=== PATIENT | female | born 1990 | race Caucasian/White ===

== ENCOUNTER 2020-04-02 10:44 | Emergency (ER) | payer OTHER ==
[~2020-04-02] VITALS: Ht 162.6 cm; Wt 104.3 kg
[2020-04-02 11:44] LABS: ABSOLUTE LYMPHOCYTES 0.9 thou/uL (0.8-5.3); ABSOLUTE MONOCYTES 0.2 thou/uL (0.0-1.2); ABSOLUTE NEUTROPHILS 4.5 thou/uL (1.6-8.1); BASOPHILS 0.1 %; EOSINOPHILS 0.3 %; HEMATOCRIT 41.5 % (37.0-47.0); HEMOGLOBIN 14.1 gm/dL (12.0-15.0); LYMPHOCYTES 15.3 %; MCH 30.9 pg (26.0-34.0); MCV 90.8 fL (80.0-100.0); MONOCYTES 4.2 %; NUCLEATED RBCS 0 /100WBC; PLATELET COUNT* 203 thou/uL (150-400); POLYS 80.1 %; RBC 4.57 mil/uL (4.20-5.00); RDW-CV 13.1 % (10.5-14.5); WBC 5.6 thou/uL (4.0-11.0)
[2020-04-02 11:51] LABS: URINE BLOOD NEGATIVE (Negative); URINE CLARITY CLEAR; URINE COLOR YELLOW; URINE GLUCOSE-RANDOM NEGATIVE (Negative); URINE KETONES 2+ (Negative); URINE LEUKOCYTES-REFLEX NEGATIVE (Negative); URINE NITRITE-REFLEX NEGATIVE (Negative); URINE PROTEIN NEGATIVE (Negative); URINE UROBILINOGEN 0.2 E.U./dl (0.2-1.0)
[2020-04-02 11:51] LABS: CALCIUM 8.3 mg/dL (8.5-10.1); CREATININE 0.9 mg/dL (0.6-1.3); POTASSIUM 3.7 mmol/L (3.5-5.1)
[2020-04-02 11:55] LABS: URINE BILIRUBIN 1+ (Negative)
[2020-04-02 11:55] LABS: ALBUMIN 3.6 g/dL (3.4-5.0); APTT 28.2 Seconds (25.0-31.3); INR 1.1; PROTIME 11.4 Seconds (9.20-11.50); TOTAL BILIRUBIN 1.2 mg/dL (<0.1-1.0); TOTAL PROTEIN 7.3 g/dL (6.4-8.2)
[2020-04-02 11:57] LABS: ICTOTEST (BILI CONFIRMATORY) Positive (Negative)
[2020-04-02] MEDS ORDERED: ZOFRAN ODT4 MG SUBLING (13:07)
[2020-04-02] MEDS ORDERED: NORCO 5-325 TA1 EAC1 PO (13:07)
[2020-04-02 13:19] VITALS: BP 96/72
--- NOTE | 2020-04-03 09:44 | EKG ---
[place] [address] ELECTROCARDIOGRAM REPORT Name: VANESSA EPPERSON Room: [facility]#: [id number] Admission: 04/02/20 Attend Phys: Discharge: 04/02/20 Date of : 88 Date of Service: 04/02/20 1105 Report #: [id number] THIS REPORT FOR: //name// [facility] ED Test Date: 2020-04-02 Test Time: 11:05:04 Pat Name: VANESSA EPPERSON Department: Room: Gender: F [employer]: : 1990 Requested By: Ed Campos Order Number: [id number] MD: James Owen Measurements Intervals [place] Rate: 44 P: 13 CO: 169 QRS: 17 QRSD: 87 T: 41 QT: 488 QTc: 418 Interpretive Statements Sinus bradycardia No previous ECG available for comparison Electronically Signed On 04-03-2020 9:43:19 CDT by James Owen [email or web address] <ELECTRONICALLY SIGNED> By: Elizabeth Owen MD, [facility] 04/03/20 0943 04 Elizabeth Owen MD, [facility] /EPI
== END 2020-04-02 13:20 | disposition home or self-care (01) ==
LOC: M.ERS 10:44
PROVIDERS: Family Medicine
DX: R10.84 Generalized abdominal pain (principal); R11.2 Nausea with vomiting, unspecified; Z88.6 Allergy status to analgesic agent; Z88.8 Allergy status to other drugs, medicaments and biological substances